=== PATIENT | female | born 1950 | race Caucasian/White ===

== ENCOUNTER 2016-07-24 21:13 | Inpatient (IN) ==
[2016-07-24 22:05] LABS: Basophils # 0.1 K/mcL (0.0-0.2); Basophils % 0.5 %; Eosinophils # 0.1 K/mcL (0.0-0.6); Eosinophils % 0.6 %; Hematocrit 39.6 % (35.3-44.9); Hemoglobin 12.8 g/dL (11.5-15.4); Immature Granulocytes % 0.3 % (0-4); Lymphocytes # 1.5 K/mcL (0.6-4.6); Lymphocytes % 16.3 %; Mean Corpuscular HGB Conc 32.3 g/dL (31.6-35.5); Mean Corpuscular Hemoglobin 31.6 pg (28.0-33.3); Mean Corpuscular Volume 97.8 fL (83.0-100.0); Mean Platelet Volume 11.7 fL (9.4-12.4); Monocytes # 1.1 K/mcL (0.0-1.3); Monocytes % 11.2 %; Neutrophils # 6.7 K/mcL (1.6-8.9); Platelet Count 314 K/mcL (140-400); Red Blood Count 4.05 M/mcL (3.82-4.97); Red Cell Distribution Width 14.6 % (11.5-14.5); Segmented Neutrophils % 71.1 %
--- NOTE | 2016-07-24 22:05 | Emergency Department Note ---
Disposition Clinical Impression: Weakness, Hypokalemia Hypothyroidism Qualifiers: Hypothyroidism type: unspecified Qualified Code(s): E03.9 - Hypothyroidism, unspecified Disposition: Admitted As Inpatient Condition: Good Weakness HPI - General Chief complaint: ED Weakness Stated complaint: General Weakness Time Seen by Provider: 07/24/16 21:23 Source: patient, EMS Limitations: no limitations Nursing Notes Reviewed: Yes Vital Signs Reviewed: Yes - History of Present Illness HPI Narrative: Patient is here for evaluation of generalized weakness. Patient states that she has had worsening symptoms over the last 3 weeks that it been acutely worse over the last several days. The patient has a hip problem that is being evaluated by a surgeon in [place]. Patient is supposed to be evaluated for surgery next week. Patient has a history of gastric bypass surgery as well as hypothyroidism and has not been taking her medications or supplements as prescribed. Patient has had increasing swelling and size of her legs. Patient left hip is the one being evaluated for surgery however it is pain in her right leg that has been more severe recently. Patient has not had any falls or recent trauma. Patient lives at home alone and has to the point that she is not able to walk and take care of any of her activities of daily living. Pain Scale: 7 - Related Data Home Medications Medication Instructions Recorded Confirmed Albuterol Sulfate [Albuterol 2 puff IH Q4HR PRN 10/12/15 10/12/15 Inhaler] Cyanocobalamin (B-12) [Vitamin B12] 1,000 mcg PO QMONTH 10/12/15 10/12/15 Dronedarone [Multaq] 400 mg PO BIDWM 10/12/15 10/12/15 Ferrous Sulfate 325 mg PO DAILY 10/12/15 10/12/15 Levothyroxine [Synthroid] 125 mcg PO 0630 10/12/15 10/12/15 Lidocaine Patch [Lidoderm 5% patch] 1 each TP DAILY 10/12/15 10/12/15 Lisinopril [Zestril] 40 mg PO DAILY 10/12/15 10/12/15 Montelukast [Singulair] 10 mg PO DAILY 10/12/15 10/12/15 Multivitamin [Multi-Day Vitamins] 1 each PO DAILY 10/12/15 10/12/15 Naproxen Sodium [Aleve] 220 mg PO Q12H 10/12/15 10/12/15 Pantoprazole Sodium [Protonix] 40 mg PO BID 10/12/15 10/12/15 Potassium Chloride [K-Tab ER] 20 meq PO DAILY PRN 10/12/15 10/12/15 Torsemide [Demadex] 20 mg PO DAILY PRN 10/12/15 10/12/15 Venlafaxine HCl [Venlafaxine HCl 37.5 mg PO DAILY 10/12/15 10/12/15 ER] traMADol [Ultram] 50 - 100 mg PO DAILY 10/12/15 10/12/15 Allergies Allergy/AdvReac Type Severity Reaction Status Date / Time celecoxib [From Celebrex] Allergy Itching Verified 07/24/16 21:20 aspirin AdvReac "passed Verified 07/24/16 21:20 out" meloxicam [From Mobic] AdvReac high blood Verified 07/24/16 21:20 pressure pregabalin [From Lyrica] AdvReac suicidal Verified 07/24/16 21:20 rofecoxib [From Vioxx] AdvReac high blood Verified 07/24/16 21:20 pressure valdecoxib [From Bextra] AdvReac high blood Verified 07/24/16 21:20 pressure Review of Systems: CONSTITUTIONAL: Increasing weakness and fatigue No weight loss, fever, chills HEENT: Eyes: No visual changes. Ears, Nose, Throat: No hearing loss, difficulty talking or unable to swallow. SKIN: No rash or itching. CARDIOVASCULAR: No chest pain, chest pressure or chest discomfort. No palpitations or edema. RESPIRATORY: No shortness of breath, cough or sputum. GASTROINTESTINAL: No anorexia, nausea, vomiting or diarrhea. No abdominal pain or blood. GENITOURINARY: No burning on urination or hematuria. NEUROLOGICAL: No headache, dizziness, syncope, paralysis, ataxia, numbness or tingling in the extremities. No change in bowel or bladder control. MUSCULOSKELETAL: Back and leg pain HEMATOLOGIC: No bleeding or bruising. LYMPHATICS: No enlarged lymphnodes. PSYCHIATRIC: No change to depression or anxiety. ENDOCRINOLOGIC: Heat and cold intolerance Past Medical History - Past Medical History Medical history: Reports: arthritis, fibromyalgia, GERD, hypertension, other Surgical history: Reports: cholecystectomy, other Psychiatric history: Reports: depression - Social History Smoking Status: Never smoker Smokeless Tobacco Status: No Alcohol use: Reports: none Drug use: Reports: none Physical Exam General appearance: NAD, conversant Eyes: anicteric sclerae, moist conjunctivae; PERRL HENT: Atraumatic; oropharynx clear with moist mucous membranes and no mucosal ulcerations Neck: Normal inspection; Trachea midline; FROM, supple Lungs: CTA, with normal respiratory effort and no intercostal retractions CV: RRR, significant systolic murmur Abdomen: Soft, non-tender; no rebound or gaurding Extremities: Patient has large circumference of lower extremities with no significant pitting edema. Weakness secondary to size Skin: Normal temperature; no rash, ulcers or lesions Psych: Appropriate mood and affect Neuro: alert and oriented to person, place and time - General Limitations: no limitations General appearance: alert Course - Reevaluation(s) Reevaluation #1: Discussed the results with the patient. Patient does not feel safe going home as she is unable to walk at this time secondary to her weakness and deconditioning. Recommend admission. Patient states that she does not want to be admitted to [facility] and wants to be transferred to [facility] for continuity of care. She states her orthopedic surgeon as there and that she is supposed to be scheduled for left hip surgery. She is unsure of the date. Surgeon is Dr. Staton. Reevaluation #2: Discussed the results of the conversation with [place]. Patient understands and is willing to stay at this hospital. - Consultations Consultation #1: Discussed with [place] transfer center. This case was discussed with the hospitalist and they have refused admission at this time secondary to patient not being scheduled for orthopedic procedure secondary to her being high risk for surgery and declining overall status. Consultation #2: Discussed with hospitalist. Patient accepted for admission at [facility]. Vital Signs Temperature 97.9 F 07/24/16 21:20 Pulse Rate 74 07/24/16 21:20 Respiratory Rate 16 07/24/16 21:20 Blood Pressure 177/66 07/24/16 21:20 O2 Sat by Pulse Oximetry 99 07/24/16 21:20 Temperature 97.9 F 07/24/16 21:20 Pulse Rate 76 07/24/16 23:56 Respiratory Rate 18 07/24/16 23:56 Blood Pressure 162/69 07/24/16 23:56 O2 Sat by Pulse Oximetry 100 07/24/16 23:56 Oxygen Delivery Oxygen Delivery Room Air Weakness - Lab Data Result diagrams: 07/24/16 21:33 07/24/16 21:33 Lab Results 07/24/16 07/24/16 07/24/16 Range/Units 21:33 21:33 21:33 WBC 9.5 (4.3-11.1) K/mcL RBC 4.05 (3.82-4.97) M/mcL Hgb 12.8 (11.5-15.4) g/dL Hct 39.6 (35.3-44.9) % MCV 97.8 (83.0-100.0) fL MCH 31.6 (28.0-33.3) pg MCHC 32.3 (31.6-35.5) g/dL RDW 14.6 H (11.5-14.5) % Plt Count 314 (140-400) K/mcL MPV 11.7 (9.4-12.4) fL Immature Gran % 0.3 (0-4) % Seg Neutrophils % 71.1 % Lymphocytes % 16.3 % Monocytes % 11.2 % Eosinophils % 0.6 % Basophils % 0.5 % Neutrophils # 6.7 (1.6-8.9) K/mcL Lymphocytes # 1.5 (0.6-4.6) K/mcL Monocytes # 1.1 (0.0-1.3) K/mcL Eosinophils # 0.1 (0.0-0.6) K/mcL Basophils # 0.1 (0.0-0.2) K/mcL Sodium 142 (136-145) mEq/L Potassium 3.2 L (3.5-4.5) mEq/L Chloride 106 (98-109) mEq/L Carbon Dioxide 27 (19-29) mEq/L BUN 10 (7-20) mg/dL Creatinine 0.70 (0.57-1.11) mg/dL Est GFR ( Amer) > 60 (> 60) Est GFR (Non-Af Amer) > 60 (> 60) BUN/Creatinine Ratio 14 (6-26) Glucose 101 H (70-99) mg/dL Calculated Osmolality 293 (280-300) Calcium 9.4 (8.6-10.8) mg/dL Ionized Calcium 1.16 (1.15-1.35) mmol/L Phosphorus 2.9 (2.3-4.7) mg/dL Magnesium 1.7 (1.6-2.6) mg/dL Total Bilirubin 0.8 (0.2-1.2) mg/dL AST 48 H (5-34) Units/L ALT 22 (0-55) Units/L Alkaline Phosphatase 193 H (38-126) Units/L Troponin I (0-0.03) ng/mL Serum Total Protein 6.7 (6.0-8.3) g/dL Albumin 3.3 L (3.5-5.0) g/dL Globulin 3.4 (2.4-3.5) g/dL Albumin/Globulin Ratio 1.0 L (1.1-2.2) TSH 12.069 H (0.350-4.840) mcIU/mL Urine Color (Yellow) Urine Clarity (Clear) Urine pH (5.0-8.0) pH Units Ur Specific Perry (1.010-1.025) Urine Protein (Neg-Trace) mg/dL Urine Glucose (UA) (Normal) mg/dL Urine Ketones (Negative) mg/dL Urine Blood (Negative) Urine Nitrite (Negative) Urine Bilirubin (Negative) Urine Urobilinogen (Normal) mg/dL Ur Leukocyte Esterase (Negative) Urine Microscopic RBC (0-3) per hpf Urine Microscopic WBC (0-3) per hpf Ur Squamous Epith Cells (None-Few) per lpf Urine Bacteria (None-Few) per hpf Hyaline Casts (None-Few) per lpf Ur Culture Indicated? (NO) 07/24/16 07/24/16 Range/Units 21:33 22:25 WBC (4.3-11.1) K/mcL RBC (3.82-4.97) M/mcL Hgb (11.5-15.4) g/dL Hct (35.3-44.9) % MCV (83.0-100.0) fL MCH (28.0-33.3) pg MCHC (31.6-35.5) g/dL RDW (11.5-14.5) % Plt Count (140-400) K/mcL MPV (9.4-12.4) fL Immature Gran % (0-4) % Seg Neutrophils % % Lymphocytes % % Monocytes % % Eosinophils % % Basophils % % Neutrophils # (1.6-8.9) K/mcL Lymphocytes # (0.6-4.6) K/mcL Monocytes # (0.0-1.3) K/mcL Eosinophils # (0.0-0.6) K/mcL Basophils # (0.0-0.2) K/mcL Sodium (136-145) mEq/L Potassium (3.5-4.5) mEq/L Chloride (98-109) mEq/L Carbon Dioxide (19-29) mEq/L BUN (7-20) mg/dL Creatinine (0.57-1.11) mg/dL Est GFR ( Amer) (> 60) Est GFR (Non-Af Amer) (> 60) BUN/Creatinine Ratio (6-26) Glucose (70-99) mg/dL Calculated Osmolality (280-300) Calcium (8.6-10.8) mg/dL Ionized Calcium (1.15-1.35) mmol/L Phosphorus (2.3-4.7) mg/dL Magnesium (1.6-2.6) mg/dL Total Bilirubin (0.2-1.2) mg/dL AST (5-34) Units/L ALT (0-55) Units/L Alkaline Phosphatase (38-126) Units/L Troponin I 0.03 (0-0.03) ng/mL Serum Total Protein (6.0-8.3) g/dL Albumin (3.5-5.0) g/dL Globulin (2.4-3.5) g/dL Albumin/Globulin Ratio (1.1-2.2) TSH (0.350-4.840) mcIU/mL Urine Color Dark Yellow (Yellow) Urine Clarity Clear (Clear) Urine pH 6.0 (5.0-8.0) pH Units Ur Specific Perry > 1.030 H (1.010-1.025) Urine Protein 30 H (Neg-Trace) mg/dL Urine Glucose (UA) Normal (Normal) mg/dL Urine Ketones 15 H (Negative) mg/dL Urine Blood Small H (Negative) Urine Nitrite Negative (Negative) Urine Bilirubin Small H (Negative) Urine Urobilinogen Normal (Normal) mg/dL Ur Leukocyte Esterase Negative (Negative) Urine Microscopic RBC 50-100 H (0-3) per hpf Urine Microscopic WBC 0-3 (0-3) per hpf Ur Squamous Epith Cells Many H (None-Few) per lpf Urine Bacteria None Seen (None-Few) per hpf Hyaline Casts Moderate H (None-Few) per lpf Ur Culture Indicated? NO (NO) Attestation Statement - Attestation Attestation: I, Lewis English MD, personally evaluated this patient and discussed their management with the resident physician. I reviewed the resident's note and agree with the documented findings, medical decision making, and plan of care. 66-year-old female presents to the emergency department with a complaint of increasing generalized weakness over the past few days to the point that today she has been unable to ambulate or even get to the bathroom. She lives alone. No specific fall or injury. No cough or chest pain or shortness of breath. No fever. No vomiting or diarrhea. No abdominal pain. She does state that she has not felt well and has not been taking her medications as prescribed. On examination patient is a morbidly obese elderly female in no acute distress. She is alert and oriented 3. There is no cyanosis or diaphoresis. Breath sounds are clear and equal bilaterally. Heart regular rate and rhythm. Abdomen is soft with normal bowel sounds. Some mild cellulitis of the distal lower extremities bilaterally which she states has been present for several weeks. No gross focal neurological deficits. Labs reviewed. Chest x-ray negative. EKG shows a normal sinus rhythm with a heart rate of [address] and T-wave changes. Patient requested to be transferred to [facility] because she has been seeing a specialist there regarding some hip problems. [facility] was consulted and given patient information and declined to accept patient for transfer to their facility. The hospitalist here, Dr. Resendez, was then consulted and accepted admission of the patient to the hospital.
[2016-07-24 22:10] LABS: Ionized Calcium 1.16 mmol/L (1.15-1.35)
[2016-07-24 22:18] LABS: Magnesium 1.7 mg/dL (1.6-2.6); Phosphorous 2.9 mg/dL (2.3-4.7)
[2016-07-24 22:19] LABS: Alanine Aminotransferase 22 Units/L (0-55); Albumin 3.3 g/dL (3.5-5.0); Alkaline Phosphatase 193 Units/L (38-126); Aspartate Amino Transferase 48 Units/L (5-34); BUN/Creatinine Ratio 14 (6-26); Bilirubin,Total 0.8 mg/dL (0.2-1.2); Blood Urea Nitrogen 10 mg/dL (7-20); Calcium 9.4 mg/dL (8.6-10.8); Carbon Dioxide 27 mEq/L (19-29); Chloride 106 mEq/L (98-109); Globulin 3.4 g/dL (2.4-3.5); Glucose 101 mg/dL (70-99); Osmolality,Calculated 293 (280-300); Potassium 3.2 mEq/L (3.5-4.5); Sodium 142 mEq/L (136-145); Total Protein 6.7 g/dL (6.0-8.3); eGFR For African Americans > 60 (> 60); eGFR For Non-African Americans > 60 (> 60)
[2016-07-24 22:40] LABS: Thyroid Stimulating Hormone 12.069 mcIU/mL (0.350-4.840)
[2016-07-24 22:45] LABS: Bilirubin,Urine Small (Negative); Blood,Urine Small (Negative); Clarity,Urine Clear (Clear); Color,Urine Dark Yellow (Yellow); Glucose,Urine (UA) Normal (Normal); Ketones,Urine 15 mg/dL (Negative); Leukocyte Esterase,Urine Negative (Negative); Nitrite,Urine Negative (Negative); Protein,Urine 30 mg/dL (Neg-Trace); Specific Gravity,Urine > 1.030 (1.010-1.025); Urobilinogen,Urine Normal (Normal)
[2016-07-24 22:47] LABS: Bacteria,Urine None Seen per hpf (None-Few); Hyaline Casts,Urine Moderate per lpf (None-Few); RBC,Urine 50-100 per hpf (0-3); Squamous Epithelial Cell,Urine Many per lpf (None-Few); WBC,Urine 0-3 per hpf (0-3)
[2016-07-24] MEDS ORDERED: Potassium Citrate 10 MEQ TABLET.ER PO ONE (23:12)
[2016-07-25] MEDS ORDERED: Naloxone 0.4 MG/ML INJ IVP PRN (05:29)
[2016-07-25] MEDS ORDERED: Acetaminophen 325 MG TABLET PO PRN (05:29)
[2016-07-25] MEDS ORDERED: Ondansetron 4 MG/2 ML VIAL IVP PRN (05:29)
--- NOTE | 2016-07-25 05:42 | Internal Med History&Physical ---
Date of Encounter: 07/25/16 Time of Encounter: 05:40 Assessment and Plan (1) Bilateral lower leg cellulitis Current visit: Yes Status: Acute Patient reports skin redness in both lower extremity and dyspnea consistent with cellulitis. Plan: we will treat her with IV vancomycin due to high prevalence of community acquired MRSA. I will order a blood culture. Follow-up clinically and de- escalate to oral antibiotics in 1-2 days. (2) Type 2 diabetes mellitus Current visit: Yes Status: Acute We will start Levemir and Humalog insulin preprandial and sliding scale. Check hemoglobin A1c. Qualifiers: Diabetes mellitus complication status: without complication Diabetes mellitus nursing home insulin use: with long term acute care registered nurse use Qualified Code(s): E11.9 - Type 2 diabetes mellitus without complications; Z79.4 - rodent exterminator (current) use of insulin (3) Physical deconditioning Current visit: Yes Status: Acute PT OT evaluation (4) Morbid obesity with BMI of 45.0-49.9, adult Current visit: Yes Status: Acute Outpatient weight loss regimen. (5) Essential hypertension Current visit: Yes Status: Acute (6) Hypothyroidism Current visit: Yes Status: Acute We will treat her with IV levothyroxin. Switch back to oral levofloxacin prior to discharge. We will obtain free T3 and free T4 levels. Qualifiers: Hypothyroidism type: acquired Qualified Code(s): E03.9 - Hypothyroidism, unspecified Internal Medicine - H&P: HPI Chief complaint: Weakness Admitted From: Emergency Dept Plans for Post Hospital Care: Home History of present illness: Ms. Granado is a 66 year old female with past medical history significant for morbid obesity, type 2 diabetes and hypothyroidism who presented to the hospital for generalized weakness. She states that she is having progressive generalized weakness for the last 2 weeks, for the last 2 days she was not able to ambulate even with a walker which is her norm. She denies any worsening pain in her knees hips and legs. Denies back pain. Denies fevers chills cough chest pain, nausea, vomiting and diarrhea. Workup done in the emergency department was pertinent for elevated TSH. A 10 point review of systems was negative except per the history of present illness. Past medical history as mentioned above Family history reviewed and found to be noncontributory. Past Med Surg Social Fam HX - Past Medical History Medical history: arthritis, atrial fibrillation, fibromyalgia, GERD, hypertension, other Psychiatric history: depression - Past Surgical History Surgical History: , cholecystectomy, other - Social History Smoking Status: Never smoker Smokeless Tobacco Status: No Alcohol use: none Drug use: none - Family History Mother Living Status: Hx Family Cardiac Disorders: Yes Internal Medicine - H&P: Meds Albuterol Sulfate [Albuterol Inhaler] 2 puff IH Q4HR PRN 10/12/15 [History] Cyanocobalamin (B-12) [Vitamin B12] 1,000 mcg PO QMONTH 10/12/15 [History] Dronedarone [Multaq] 400 mg PO BIDWM 10/12/15 [History] Ferrous Sulfate 325 mg PO DAILY 10/12/15 [History] Levothyroxine [Synthroid] 125 mcg PO 0630 10/12/15 [History] Lidocaine Patch [Lidoderm 5% patch] 1 each TP DAILY 10/12/15 [History] Lisinopril [Zestril] 40 mg PO DAILY 10/12/15 [History] Montelukast [Singulair] 10 mg PO DAILY 10/12/15 [History] Multivitamin [Multi-Day Vitamins] 1 each PO DAILY 10/12/15 [History] Naproxen Sodium [Aleve] 220 mg PO Q12H 10/12/15 [History] Pantoprazole Sodium [Protonix] 40 mg PO BID 10/12/15 [History] Potassium Chloride [K-Tab ER] 20 meq PO DAILY PRN 10/12/15 [History] Torsemide [Demadex] 20 mg PO DAILY PRN 10/12/15 [History] Venlafaxine HCl [Venlafaxine HCl ER] 37.5 mg PO DAILY 10/12/15 [History] traMADol [Ultram] 50 - 100 mg PO DAILY 10/12/15 [History] Allergies celecoxib [From Celebrex] Allergy (Verified 07/24/16 21:20) Itching aspirin Adverse Reaction (Verified 07/24/16 21:20) "passed out" meloxicam [From Mobic] Adverse Reaction (Verified 07/24/16 21:20) high blood pressure pregabalin [From Lyrica] Adverse Reaction (Verified 07/24/16 21:20) suicidal rofecoxib [From Vioxx] Adverse Reaction (Verified 07/24/16 21:20) high blood pressure valdecoxib [From Bextra] Adverse Reaction (Verified 07/24/16 21:20) high blood pressure All Systems PM: A 10-system review of systems was performed and is negative for pertinent findings except as documented above in the HPI. - Constitutional Vitals: Temp Pulse Resp BP Pulse Ox 98.2 F 81 18 162/82 100 07/25/16 02:18 07/25/16 02:18 07/25/16 02:18 07/25/16 02:18 07/25/16 02:18 General appearance: Present: A&O X 3 - Eye Eye exam: Present: PERRL, conjuntiva pink, sclera anicteric Pupils: Present: PERRL - Respiratory Respiratory exam: Present: CTAB. Absent: accessory muscle use, rales, rhonchi, wheezes - Cardiovascular Cardiovascular exam: Present: RRR, +S1, +S2. Absent: diastolic murmur, gallop, rubs, systolic murmur - GI/Abdominal GI/Abdominal exam: Present: normal bowel sounds, soft, no peritoneal signs. Absent: distended, tenderness - Extremities Exam Extremities exam: Present: pedal edema, warm, radial pulses palpable and symetrical. Absent: calf tenderness, cyanotic - Neurological Exam Neurological exam: Present: CN II-XII intact, oriented X3, no focal deficits. Absent: pronater drift, facial droop, speech deficit - Skin Skin exam: Present: erythema (Bilateral lower extremity skin redness and warmth to palpation, subcutaneous edema) Internal Med - H&P Results - Labs CBC & Chem 7: 07/24/16 21:33 07/24/16 21:33
[2016-07-25 05:46] LABS: BUN/Creatinine Ratio 14 (6-26); Blood Urea Nitrogen 8 mg/dL (7-20); Calcium 8.2 mg/dL (8.6-10.8); Carbon Dioxide 26 mEq/L (19-29); Chloride 109 mEq/L (98-109); Glucose 87 mg/dL (70-99); Magnesium 1.6 mg/dL (1.6-2.6); Osmolality,Calculated 294 (280-300); Potassium 3.2 mEq/L (3.5-4.5); Sodium 143 mEq/L (136-145); eGFR For African Americans > 60 (> 60); eGFR For Non-African Americans > 60 (> 60)
[2016-07-25] MEDS ORDERED: D5% in Water 1,000 ML IVC PRN (05:48)
[2016-07-25] MEDS ORDERED: *HR* Dextrose 50 % in Water (Syg) 50 ML SYRINGE IVP PRN (05:48)
[2016-07-25] MEDS ORDERED: Dextrose Gel 15 GM PO PRN ×2 (05:48)
[2016-07-25 06:09] LABS: Triiodothyronine (T3) Free 1.61 pg/mL (1.71-3.71); Triiodothyronine (T3) Total 0.48 ng/mL (0.58-1.59)
[2016-07-25] MEDS ORDERED: (Lactase [Dairy Relief] 3,000 UNIT) PO PRN (06:48)
[2016-07-25] MEDS ORDERED: traMADol 50 MG TABLET PO PRN (06:48)
[2016-07-25] MEDS: Levothyroxine Sodium 100 MCG VIAL IVP SCH (06:51)
[2016-07-25] MEDS ORDERED: Vancomycin 2,000 MG in D5% in Water 250 ML IVPB SCH (07:00)
[2016-07-25] MEDS ORDERED: Vancomycin 2,000 MG in D5% in Water 500 ML IVPB SCH (07:00)
[2016-07-25] MEDS ORDERED: NON-FORMULARY MEDICATION 1 EACH EACH (Lisinopril [Zestril] 40 MG) PO SCH (09:00)
[2016-07-25] MEDS: Insulin LISPRO 300 UNITS/3 ML VIAL SQ SCH ×6 (09:25→15:49)
[2016-07-25] MEDS: Insulin DETEMIR 100 UNIT/ML X5UNITS SQ SCH ×2 (09:44→20:08)
[2016-07-25] MEDS: Venlafaxine XR (24 HR) 37.5 MG CAP.ER.24H PO SCH (09:44)
[2016-07-25] MEDS: Lisinopril 20 MG TABLET PO SCH (09:45)
--- NOTE | 2016-07-25 14:41 | Internal Med Progress Note ---
Date of Encounter: 07/25/16 Time of Encounter: 10:00 - Assessment and plan (1) Bilateral lower leg cellulitis Current Visit: Yes Status: Acute Assessment and plan: She reports redness in both lower extremities. There is minimal redness to the anterior bilateral lower extremities, they are warm to touch. There is no drainage or streaking. Has no leukocytosis or fever. Continue IV vancomycin transition to by mouth antibiotics tomorrow. (2) Weakness Current Visit: Yes Status: Acute Assessment and plan: Patient states that now she is unable to walk. She says she has not been able to walk for a couple of days has become progressively weak. She was doing physical therapy at home and when that stopped she began becoming weak. Patient is morbidly O penis and deconditioned, she lives at home with her parents and relies on them for most of her care. Physical therapy and occupational therapy consultations are pending. organic lab worker is working on home health and placing patient with her daughter until she is ambulatory again. (3) Hypokalemia Current Visit: Yes Status: Acute Assessment and plan: Continue by mouth potassium supplements (4) Hypothyroidism Current Visit: Yes Status: Acute Assessment and plan: TSH was elevated to 12.069. Free T3 was 1.61 and free T4 was 0.73. Total T3 0.48 low. Patient was given IV levothyroxine in the emergency department and will continue her home dose inpatient. She will need to follow-up with primary care for dosage adjustments. Qualifiers: Hypothyroidism type: acquired Qualified Code(s): E03.9 - Hypothyroidism, unspecified (5) Type 2 diabetes mellitus Current Visit: Yes Status: Acute Assessment and plan: A1c 5.0%. Continue to do achs accuchecks Hold insulin unless needed. Reassess need for medications at discharge. Qualifiers: Diabetes mellitus complication status: without complication Diabetes mellitus alf insulin use: with alf use Qualified Code(s): E11.9 - Type 2 diabetes mellitus without complications; Z79.4 - detention (current) use of insulin (6) Physical deconditioning Current Visit: Yes Status: Acute Assessment and plan: Plan as above. (7) Morbid obesity with BMI of 45.0-49.9, adult Current Visit: Yes Status: Acute Assessment and plan: Chronic. Lifestyle changes. (8) Essential hypertension Current Visit: Yes Status: Chronic Assessment and plan: Well controlled. Continue home medications and vitals as ordered. (9) DVT prophylaxis Current Visit: Yes Status: Acute Assessment and plan: SCD and up to chair BID - Time Spent With Patient less than 15 minutes - Subjective Interval history: Patient was seen and assessed about 10 AM this morning. She is alert and awake oriented 3. She is pleasant. Patient was admitted for bilateral leg cellulitis. Patient states that she is no longer able to walk. She had been doing physical therapy at home, and when she finished that she became unable to walk. Patient's legs are extremely large and edematous, mild redness and swelling noted to anterior legs bilaterally. Patient being treated with IV antibiotics Chest reports chronic left hip pain. She is to have a replacement, however surgeon says she is a poor surgical candidate due to weight and comorbidities. She says she has been trying to lose 60 pounds so she can have the surgery, however now she can not get up and walk that has become more difficult. She lives at home with her parents. organic lab worker seeing patient now and she may stay with her daughter and have home health and PT. Patient wanted to discuss CODE STATUS, changing to DNR and living will. Social workers getting her living will paperwork. We discussed the DNR and she will think about it overnight and discuss it with physician tomorrow. - Constitutional Vitals: Temp Pulse Resp BP Pulse Ox 99.4 F 80 17 145/55 94 07/25/16 10:42 07/25/16 10:42 07/25/16 10:42 07/25/16 10:42 07/25/16 10:42 General appearance: Present: cooperative, A&O X 3, morbidly obese, pleasant, answers questions appropriately - Head Head exam: Present: normal inspection - Eye Eye exam: Present: normal appearance, conjuntiva pink - ENT ENT exam: Present: mucous membranes moist, normal exam, normal external ear exam - Neck Neck exam general surgery: Present: normal inspection. Absent: lymphadenopathy , tenderness - Respiratory Respiratory exam: Present: CTAB. Absent: rales, respiratory distress, rhonchi, stridor, wheezes - Cardiovascular Cardiovascular exam: Present: RRR, +S1, +S2. Absent: clicks, diastolic murmur, gallop, systolic murmur - GI/Abdominal GI/Abdominal exam: Present: distended, normal bowel sounds, soft. Absent: hepatomegaly, tenderness - Neurological Exam Neurological exam: Present: alert, oriented X3, no focal deficits. Absent: facial droop, speech deficit - Skin Skin exam: Present: dry, intact, normal color Internal Medicine: Result - Labs CBC & Chem 7: 07/24/16 21:33 07/25/16 05:18 Labs: [facility] 07/25/16 05:18 Sodium 143 Potassium 3.2 L Chloride 109 Carbon Dioxide 26 BUN 8 Creatinine 0.59 Glucose 87 Calcium 8.2 L Consult Discharge Plan - Plan Referrals: Lucy Murphy MD [Primary Care Provider] -
[2016-07-25] MEDS: Vancomycin 2,000 MG in D5% in Water 500 ML IVPB SCH (20:07)
[2016-07-25] MEDS ORDERED: Insulin LISPRO 300 UNITS/3 ML VIAL SQ SCH (21:00)
[2016-07-25] MEDS: traMADol 50 MG TABLET PO PRN (23:25)
[2016-07-26 05:45] LABS: Basophils # 0.1 K/mcL (0.0-0.2); Basophils % 0.7 %; Eosinophils # 0.2 K/mcL (0.0-0.6); Eosinophils % 3.1 %; Hematocrit 32.2 % (35.3-44.9); Immature Granulocytes % 0.4 % (0-4); Lymphocytes # 2.2 K/mcL (0.6-4.6); Lymphocytes % 32.2 %; Mean Corpuscular HGB Conc 32.3 g/dL (31.6-35.5); Mean Corpuscular Hemoglobin 32.6 pg (28.0-33.3); Mean Corpuscular Volume 100.9 fL (83.0-100.0); Mean Platelet Volume 11.5 fL (9.4-12.4); Monocytes # 0.8 K/mcL (0.0-1.3); Monocytes % 11.8 %; Neutrophils # 3.6 K/mcL (1.6-8.9); Platelet Count 201 K/mcL (140-400); Red Blood Count 3.19 M/mcL (3.82-4.97); Segmented Neutrophils % 51.8 %
[2016-07-26] MEDS: Levothyroxine Sodium 100 MCG VIAL IVP SCH (05:50)
[2016-07-26] MEDS: Vancomycin 2,000 MG in D5% in Water 500 ML IVPB SCH (05:50)
[2016-07-26 05:55] LABS: Hemoglobin 10.4 g/dL (11.5-15.4)
[2016-07-26 05:58] LABS: BUN/Creatinine Ratio 9 (6-26); Blood Urea Nitrogen 6 mg/dL (7-20); Calcium 7.9 mg/dL (8.6-10.8); Carbon Dioxide 27 mEq/L (19-29); Chloride 111 mEq/L (98-109); Glucose 82 mg/dL (70-99); Osmolality,Calculated 297 (280-300); Potassium 3.4 mEq/L (3.5-4.5); Sodium 145 mEq/L (136-145); eGFR For African Americans > 60 (> 60); eGFR For Non-African Americans > 60 (> 60)
[2016-07-26] MEDS: Insulin DETEMIR 100 UNIT/ML X5UNITS SQ SCH (07:23)
[2016-07-26] MEDS: Insulin LISPRO 300 UNITS/3 ML VIAL SQ SCH ×2 (07:24)
[2016-07-26] MEDS: Venlafaxine XR (24 HR) 37.5 MG CAP.ER.24H PO SCH (07:46)
[2016-07-26] MEDS: Lisinopril 20 MG TABLET PO SCH (07:48)
[2016-07-26] MEDS: traMADol 50 MG TABLET PO PRN ×2 (07:54→18:28)
[2016-07-26] MEDS ORDERED: Aminoglycoside Consult 1 EACH MC ONE (08:37)
--- NOTE | 2016-07-26 10:19 | Internal Med Progress Note ---
Date of Encounter: 07/26/16 Time of Encounter: 09:15 - Assessment and plan (1) Weakness Current Visit: Yes Status: Acute Assessment and plan: Acute on chronic. Patient has several reasons that she feels has contributed to her gradual descent towards not being able to ambulate, most of them seem to stem from allegedly uncontrolled pain and noncompliance with dietary changes. She states she has seen several meat team lead and other providers out of tried to help her lose weight she states that she only eats cheese, crackers, and peanut butter and states that anything other than that will make her have diarrhea, vomit, or upset her stomach. She is not willing to try other new foods and is not willing to try healthy foods. She is simply noncompliant. BMI is 50. She lives alone and uses a walker and a cane. She has not had any recent falls since February. She states she has been sleeping while sitting upright for the past 4 weeks because she states her left leg pain is too severe for her to lay down. At this point, she states she cannot lift her legs up off the bed, suspect acute on chronic deconditioning secondary to sedentary behavior. OT and PT consultations are pending. adult services librarian on board as well. Awaiting recommendations. No signs of acute processes. Urinalysis negative. Blood cultures negative. No indication of acute cellulitis or acute infection. Chest x-ray negative. ITS Impressions Chest X-Ray 07/24/16 21:33 IMPRESSION: No acute process. Mild cardiomegaly. D/ / Kesha James MD / Kesha James MD Interpreting Provider: Kesha James MD (2) Physical deconditioning Current Visit: Yes Status: Acute Assessment and plan: Awaiting OT and PT consultations. Patient stating that she lives alone and uses a walker and a cane. She denies any recent falls since February of this year. She states that she has been sleeping sitting upright for the last 4 weeks secondary to left leg pain. adult services librarian on board as well. Patient stating she would be amenable to ECF placement if it is recommended and if her insurance will cover it. (3) Noncompliance of patient with dietary regimen Current Visit: Yes Status: Chronic (4) Hypokalemia Current Visit: Yes Status: Acute Assessment and plan: Improving and nearly resolved. Continue by mouth potassium supplements (5) Hypothyroidism Current Visit: Yes Status: Chronic Assessment and plan: TSH was elevated to 12.069. Free and total T3 both low; Free T4 normal. She was started on IV Levothyroxine in the ED- will transition to PO upon discharge. Home dosing of 125 mcg per day will need increased upon discharge. She is endorsing compliance with her medication. Qualifiers: Hypothyroidism type: acquired Qualified Code(s): E03.9 - Hypothyroidism, unspecified (6) Bilateral lower leg cellulitis Current Visit: Yes Status: Inactive Assessment and plan: On examination, I do not see any evidence of cellulitis. No erythema noted to either extremity. She is morbidly obese so her body habitus makes physical examination difficult however I do not see any areas of erythema and I do not feel any areas of warmth. No leukocytosis, patient is afebrile. There is no indication of an active infection at this time. We will discontinue antibiotics and monitor. (7) Type 2 diabetes mellitus Current Visit: Yes Status: Inactive Assessment and plan: It does not appear as if this patient has diabetes. She is on no diabetes medications at home and her A1c is 5.0%. No indication to initiate medications. Follow up outpatient. Qualifiers: Diabetes mellitus complication status: without complication Diabetes mellitus senior living insulin use: without senior living use Qualified Code(s): E11.9 - Type 2 diabetes mellitus without complications (8) Essential hypertension Current Visit: Yes Status: Chronic Assessment and plan: Controlled. Continue home medications and will trend and adjust medications as indicated (9) DVT prophylaxis Current Visit: Yes Status: Acute Assessment and plan: IPCs band up to chair BID (10) Morbid obesity with BMI of 50.0-59.9, adult Current Visit: Yes Status: Chronic - Subjective Interval history: Patient seen and examined. On examination, patient is sitting upright in bed watching television. Patient stating she still feels weak. She states that for the last 4 weeks, that she has had to sleep sitting up secondary to left leg pain. She states the gabapentin is helping. She states she is not eating very much because she is not like our food. - Constitutional Vitals: Temp Pulse Resp BP Pulse Ox 98.0 F 62 12 132/68 97 07/26/16 07:15 07/26/16 07:15 07/26/16 07:15 07/26/16 07:15 07/26/16 07:15 General appearance: Present: cooperative, A&O X 3, morbidly obese, pleasant, no acute distress, answers questions appropriately - Head Head exam: Present: atraumatic, normocephalic - Eye Eye exam: Present: PERRL, conjuntiva pink, sclera anicteric Pupils: Present: PERRL - Neck Neck exam general surgery: Present: supple, trachea midline. Absent: lymphadenopathy - Respiratory Respiratory exam: Present: decreased breath sounds (2/2 body habitus). Absent: accessory muscle use, rales, respiratory distress, rhonchi, wheezes - Cardiovascular Cardiovascular exam: Present: distant heart sounds (2/2 body habitus), RRR, +S1 , +S2. Absent: diastolic murmur, gallop, rubs, systolic murmur - GI/Abdominal GI/Abdominal exam: Present: normal bowel sounds, soft, no peritoneal signs. Absent: distended, tenderness - Extremities Exam Extremities exam: Present: pedal edema (trace, nonpitting), warm, radial pulses palpable and symetrical. Absent: calf tenderness, cyanotic - Neurological Exam Neurological exam: Present: alert, CN II-XII intact, oriented X3, no focal deficits, strengths equal and symetr throughout. Absent: pronater drift, facial droop, speech deficit - Expanded Neurological Exam Neurological exam expanded: Present: protecting the airway Patient oriented to: Present: person, place, time Speech: Present: fluid speech Neuro motor strength exam: LUE: 5, RUE: 5, LLE: 2/1, RLE: 2/1 Coma Scale Eye Opening: Spontaneous Coma Scale Motor Response: Obeys Commands Coma Scale Verbal Response: Oriented Coma Scale Total: 15 - Skin Skin exam: Present: dry, intact, normal color, warm Internal Medicine: Result - Labs CBC & Chem 7: 07/26/16 04:12 07/26/16 04:12 Labs: Short CBC 07/26/16 Range/Units 04:12 WBC 6.9 (4.3-11.1) K/mcL Hgb 10.4 L D (11.5-15.4) g/dL Hct 32.2 L (35.3-44.9) % Plt Count 201 (140-400) K/mcL Neutrophils # 3.6 (1.6-8.9) K/mcL BMP 07/26/16 04:12 Sodium 145 Potassium 3.4 L Chloride 111 H Carbon Dioxide 27 BUN 6 L Creatinine 0.66 Glucose 82 Calcium 7.9 L Consult Discharge Plan - Plan Referrals: Lucy Murphy MD [Primary Care Provider] -
--- NOTE | 2016-07-26 17:59 | Electrocardiograph Report ---
[place] [id number] Test Date: 2016-07-24 Pat Name: Tess Granado Department: 104 Room: 3B44 Gender: F Rn Medicare: [facility] : 1950 Requested By: Jerel Liang Order Number: [id number] Reading MD: Aida Joseph Measurements Intervals [place] Rate: 72 P: 50 DC: 131 QRS: -1 QRSD: 110 T: -36 QT: 378 QTc: 402 Interpretive Statements SINUS RHYTHM MODERATE VOLTAGE CRITERIA FOR LVH, CONSIDER NORMAL VARIANT NONSPECIFIC ST \T\ T-WAVE ABNORMALITY BASELINE ARTIFACT Electronically Signed On 07-26-2016 17:57:35 EDT by Aida Joseph
[2016-07-27 05:46] LABS: Basophils # 0.1 K/mcL (0.0-0.2); Eosinophils # 0.3 K/mcL (0.0-0.6); Eosinophils % 4.9 %; Hematocrit 35.4 % (35.3-44.9); Hemoglobin 11.1 g/dL (11.5-15.4); Immature Granulocytes % 0.5 % (0-4); Lymphocytes % 32.2 %; Mean Corpuscular HGB Conc 31.4 g/dL (31.6-35.5); Mean Corpuscular Hemoglobin 31.4 pg (28.0-33.3); Mean Corpuscular Volume 100.3 fL (83.0-100.0); Mean Platelet Volume 12.1 fL (9.4-12.4); Monocytes # 0.6 K/mcL (0.0-1.3); Monocytes % 10.4 %; Neutrophils # 3.1 K/mcL (1.6-8.9); Platelet Count 180 K/mcL (140-400); Red Blood Count 3.53 M/mcL (3.82-4.97); Red Cell Distribution Width 14.8 % (11.5-14.5)
[2016-07-27 05:59] LABS: BUN/Creatinine Ratio 8 (6-26); Carbon Dioxide 27 mEq/L (19-29); Chloride 109 mEq/L (98-109); Glucose 89 mg/dL (70-99); Magnesium 1.4 mg/dL (1.6-2.6); Osmolality,Calculated 291 (280-300); Potassium 3.6 mEq/L (3.5-4.5); Sodium 142 mEq/L (136-145); eGFR For African Americans > 60 (> 60); eGFR For Non-African Americans > 60 (> 60)
[2016-07-27 06:03] LABS: Blood Urea Nitrogen 5 mg/dL (7-20)
[2016-07-27] MEDS: Venlafaxine XR (24 HR) 37.5 MG CAP.ER.24H PO SCH (07:45)
[2016-07-27] MEDS: Lisinopril 20 MG TABLET PO SCH (07:45)
[2016-07-27] MEDS: traMADol 50 MG TABLET PO PRN ×2 (11:07→20:06)
--- NOTE | 2016-07-27 16:36 | Internal Med Progress Note ---
Date of Encounter: 07/27/16 Time of Encounter: 14:00 - Assessment and plan (1) Weakness Current Visit: Yes Status: Acute Assessment and plan: Acute on chronic. Patient has several reasons that she feels has contributed to her gradual descent towards not being able to ambulate, most of them seem to stem from allegedly uncontrolled pain and noncompliance with dietary changes. She states she has seen several network technician and other providers out of tried to help her lose weight she states that she only eats cheese, crackers, and peanut butter and states that anything other than that will make her have diarrhea, vomit, or upset her stomach. She is not willing to try other new foods and is not willing to try healthy foods. She is simply noncompliant. BMI is 50. She lives alone and uses a walker and a cane. She has not had any recent falls since February. She states she has been sleeping while sitting upright for the past 4 weeks because she states her left leg pain is too severe for her to lay down. We will obtain an echocardiogram- no echo on file. At this point, she states she cannot lift her legs up off the bed, suspect acute on chronic deconditioning secondary to sedentary behavior. OT and PT consultations have both recommended inpatient rehabilitation. We are awaiting placement. emergency medical services coordinator on board. No signs of acute processes. Urinalysis negative. Blood cultures negative. Chest x-ray negative. Possible mild, early cellulitis- will add PO antibiotics. ITS Impressions Chest X-Ray 07/24/16 21:33 IMPRESSION: No acute process. Mild cardiomegaly. D/ / Kesha James MD / Kesha James MD Interpreting Provider: Kesha James MD (2) Physical deconditioning Current Visit: Yes Status: Acute Assessment and plan: OT and PT have both recommended inpatient rehabilitation. Patient stating that she lives alone and uses a walker and a cane. She denies any recent falls since February of this year. She states that she has been sleeping sitting upright for the last 4 weeks secondary to left leg pain-echo pending. emergency medical services coordinator on board as well. Awaiting placement. Patient is not safe to be discharged in the meantime. (3) Noncompliance of patient with dietary regimen Current Visit: Yes Status: Chronic Assessment and plan: Nutrition services brought on board. Will add high-protein ensure 3 times a day as it is lactose-free. Of note, patient is status post Damon-en-Y gastric bypass in 2003, will check for nutritional deficiencies (4) Hypokalemia Current Visit: Yes Status: Resolved (5) Hypothyroidism Current Visit: Yes Status: Chronic Assessment and plan: TSH was elevated to 12.069. Free and total T3 both low; Free T4 normal. She was started on IV Levothyroxine in the ED- will transition to PO upon discharge. Home dosing of 125 mcg per day will need increased upon discharge. She is endorsing compliance with her medication. Qualifiers: Hypothyroidism type: acquired Qualified Code(s): E03.9 - Hypothyroidism, unspecified (6) Bilateral lower leg cellulitis Current Visit: Yes Status: Acute Assessment and plan: On examination, very mild erythema noted to bilateral lower extremities with very mild warmth. Possible acute cellulitis although she has no other indications of an active infection. Will add by mouth antibiotics. No antibiotic allergies listed. (7) Type 2 diabetes mellitus Current Visit: Yes Status: Inactive Assessment and plan: It does not appear as if this patient has diabetes. She is on no diabetes medications at home and her A1c is 5.0%. No indication to initiate medications. Follow up outpatient. Qualifiers: Diabetes mellitus complication status: without complication Diabetes mellitus local company intermodal truck driver insulin use: without local company intermodal truck driver use Qualified Code(s): E11.9 - Type 2 diabetes mellitus without complications (8) Essential hypertension Current Visit: Yes Status: Chronic Assessment and plan: Controlled. Continue home medications and will trend and adjust medications as indicated (9) DVT prophylaxis Current Visit: Yes Status: Acute Assessment and plan: Patient endorsing bilateral foot pain, we will order pharmacologic prophylaxis (10) Morbid obesity with BMI of 50.0-59.9, adult Current Visit: Yes Status: Chronic (11) History of Damon-en-Y gastric bypass Current Visit: Yes Status: Acute Assessment and plan: 2003. Patient stating she gets herself monthly injections of B12. - Subjective Interval history: Patient seen and examined. On examination, patient is sitting upright in bed watching television. Patient stating she still feels weak. She also states that she just finished working with physical therapy so she states that she feels sore. Her feet also feel sore. She is also stating that she can no longer eat a diet that we have attempted to provide her with such she has reverted back to her home food that appears to have been brought in by her daughter. - Constitutional Vitals: Temp Pulse Resp BP Pulse Ox 97.9 F 63 16 146/66 96 07/27/16 15:35 07/27/16 15:35 07/27/16 15:35 07/27/16 15:35 07/27/16 15:35 General appearance: Present: cooperative, A&O X 3, morbidly obese, pleasant, no acute distress, answers questions appropriately - Head Head exam: Present: atraumatic, normocephalic - Eye Eye exam: Present: PERRL, conjuntiva pink, sclera anicteric Pupils: Present: PERRL - Neck Neck exam general surgery: Present: supple, trachea midline. Absent: lymphadenopathy - Respiratory Respiratory exam: Present: decreased breath sounds (2/2 body habitus). Absent: accessory muscle use, rales, respiratory distress, rhonchi, wheezes - Cardiovascular Cardiovascular exam: Present: RRR, +S1, +S2. Absent: diastolic murmur, gallop, rubs, systolic murmur - GI/Abdominal GI/Abdominal exam: Present: normal bowel sounds, soft, no peritoneal signs. Absent: distended, tenderness - Extremities Exam Extremities exam: Present: pedal edema, warm, radial pulses palpable and symetrical. Absent: calf tenderness, cyanotic - Expanded Lower Extremities Exam Lower Leg exam: Present: erythema, swelling, tenderness Ankle exam: Present: erythema, swelling, tenderness Foot/Toe exam: Present: erythema, swelling, tenderness Neuro vascular tendon exam: Present: no vascular compromise - Neurological Exam Neurological exam: Present: alert, CN II-XII intact, oriented X3, no focal deficits, strengths equal and symetr throughout. Absent: pronater drift, facial droop, speech deficit - Skin Skin exam: Present: dry, intact, normal color, warm Internal Medicine: Result - Labs CBC & Chem 7: 07/27/16 05:26 07/27/16 05:26 Labs: Short CBC 07/27/16 Range/Units 05:26 WBC 6.2 (4.3-11.1) K/mcL Hgb 11.1 L (11.5-15.4) g/dL Hct 35.4 (35.3-44.9) % Plt Count 180 (140-400) K/mcL Neutrophils # 3.1 (1.6-8.9) K/mcL BMP 07/27/16 05:26 Sodium 142 Potassium 3.6 Chloride 109 Carbon Dioxide 27 BUN 5 L Creatinine 0.61 Glucose 89 Calcium 8.0 L - VTE Documentation of Mechanical Device: Venous foot pump, device Consult Discharge Plan - Plan Referrals: Lucy Murphy MD [Primary Care Provider] -
[2016-07-27 18:34] LABS: % Iron Saturation 16 % (15-50); Iron 39 mcg/dL (50-170); Transferrin 179 mg/dL (180-382)
[2016-07-27 18:45] LABS: Ferritin 137 ng/ml (5-204)
[2016-07-28] MEDS: *HR* Enoxaparin 40 MG/0.4 ML SYRINGE SQ SCH (05:42)
[2016-07-28] MEDS: Venlafaxine XR (24 HR) 37.5 MG CAP.ER.24H PO SCH (08:02)
[2016-07-28] MEDS: Lisinopril 20 MG TABLET PO SCH (08:02)
[2016-07-28] MEDS: traMADol 50 MG TABLET PO PRN ×2 (12:50→20:52)
--- NOTE | 2016-07-28 13:35 | Internal Med Progress Note ---
Date of Encounter: 07/28/16 Time of Encounter: 09:30 - Assessment and plan (1) Weakness Current Visit: Yes Status: Acute Assessment and plan: Acute on chronic. Patient has several reasons that she feels has contributed to her gradual descent towards not being able to ambulate, most of them seem to stem from allegedly uncontrolled pain and noncompliance with dietary changes. She states she has seen several acrobatic rigger and other providers out of tried to help her lose weight she states that she only eats cheese, crackers, and peanut butter and states that anything other than that will make her have diarrhea, vomit, or upset her stomach. She had a Damon en y in 2003. She is not willing to try other new foods and is not willing to try healthy foods. She is simply noncompliant. BMI is 50. She lives alone and uses a walker and a cane. She has not had any recent falls since February. She states she has been sleeping while sitting upright for the past 4 weeks because she states her left leg pain is too severe for her to lay down. Echocardiogram pending. At this point, she states she cannot lift her legs up off the bed, suspect acute on chronic deconditioning secondary to sedentary behavior. OT and PT consultations have both recommended inpatient rehabilitation. We are awaiting placement- will likely be cleared for [facility] tomorrow. student services dean on board. No signs of acute processes. Urinalysis negative. Blood cultures negative. Chest x-ray negative. Possible mild, early cellulitis- continue PO antibiotics. ITS Impressions Chest X-Ray 07/24/16 21:33 IMPRESSION: No acute process. Mild cardiomegaly. D/ / Kesha James MD / Kesha James MD Interpreting Provider: Kesha James MD (2) Physical deconditioning Current Visit: Yes Status: Acute Assessment and plan: OT and PT have both recommended inpatient rehabilitation. Patient stating that she lives alone and uses a walker and a cane. She denies any recent falls since February of this year. She states that she has been sleeping sitting upright for the last 4 weeks secondary to left leg pain-echo pending. student services dean on board as well. Awaiting placement. Patient is not safe to be discharged in the meantime. (3) Noncompliance of patient with dietary regimen Current Visit: Yes Status: Chronic Assessment and plan: Nutrition services brought on board. High-protein ensure added 3 times a day as it is lactose-free. Of note, patient is status post Damon-en-Y gastric bypass in 2003. She states she gives herself monthly B12 injections. She also states that she is on iron supplements but states she has diarrhea with iron supplementation. Iron stores are low, B12 and folate are normal. TSH elevated and is being addressed, her Synthroid dosage will be increased upon discharge. (4) Hypokalemia Current Visit: Yes Status: Resolved (5) Hypothyroidism Current Visit: Yes Status: Chronic Assessment and plan: TSH was elevated to 12.069. Free and total T3 both low; Free T4 normal. She was started on IV Levothyroxine in the ED- will transition to PO upon discharge. Home dosing of 125 mcg per day will need increased upon discharge. She is endorsing compliance with her medication. Qualifiers: Hypothyroidism type: acquired Qualified Code(s): E03.9 - Hypothyroidism, unspecified (6) Bilateral lower leg cellulitis Current Visit: Yes Status: Acute Assessment and plan: On examination, very mild erythema noted yesterday to bilateral lower extremities, today only to the left with very mild warmth. Possible acute cellulitis although she has no other indications of an active infection. Will continue by mouth antibiotics. No antibiotic allergies listed. (7) Type 2 diabetes mellitus Current Visit: Yes Status: Inactive Assessment and plan: It does not appear as if this patient has diabetes. She is on no diabetes medications at home and her A1c is 5.0%. No indication to initiate medications. Follow up outpatient. Qualifiers: Diabetes mellitus complication status: without complication Diabetes mellitus longterm insulin use: without longterm use Qualified Code(s): E11.9 - Type 2 diabetes mellitus without complications (8) Essential hypertension Current Visit: Yes Status: Chronic Assessment and plan: Controlled. Continue home medications and will trend and adjust medications as indicated (9) DVT prophylaxis Current Visit: Yes Status: Acute Assessment and plan: Patient endorsing bilateral foot pain, pharmacologic prophylaxis ordered yesterday. Okay to [facility] (10) Morbid obesity with BMI of 50.0-59.9, adult Current Visit: Yes Status: Chronic (11) History of Damon-en-Y gastric bypass Current Visit: Yes Status: Acute Assessment and plan: 2003. Patient stating she gets herself monthly injections of B12. - Subjective Interval history: Patient seen and examined. On examination, patient is sitting upright in bed watching television. Patient stating she is feeling better and states that she slept well last night. She states that the redness in her legs appears to be improving. She states she refused her lunch tray and has only eaten nuts today. - Constitutional Vitals: Temp Pulse Resp BP Pulse Ox 97.8 F 68 17 147/63 97 07/28/16 10:45 07/28/16 10:45 07/28/16 10:45 07/28/16 10:45 07/28/16 10:45 General appearance: Present: cooperative, A&O X 3, morbidly obese, pleasant, no acute distress, answers questions appropriately - Head Head exam: Present: atraumatic, normocephalic - Eye Eye exam: Present: PERRL, conjuntiva pink, sclera anicteric Pupils: Present: PERRL - Neck Neck exam general surgery: Present: supple, trachea midline. Absent: lymphadenopathy - Respiratory Respiratory exam: Present: decreased breath sounds (2/2 body habitus). Absent: accessory muscle use, rales, respiratory distress, rhonchi, wheezes - Cardiovascular Cardiovascular exam: Present: RRR, +S1, +S2. Absent: diastolic murmur, gallop, rubs, systolic murmur - GI/Abdominal GI/Abdominal exam: Present: normal bowel sounds, soft, no peritoneal signs. Absent: distended, tenderness - Extremities Exam Extremities exam: Present: pedal edema, warm, radial pulses palpable and symetrical. Absent: calf tenderness, cyanotic - Expanded Lower Extremities Exam Lower Leg exam: Present: erythema (mild on left) Neuro vascular tendon exam: Present: no vascular compromise - Neurological Exam Neurological exam: Present: alert, CN II-XII intact, oriented X3, no focal deficits, strengths equal and symetr throughout. Absent: pronater drift, facial droop, speech deficit - Skin Skin exam: Present: dry, intact, normal color, warm Internal Medicine: Result - Labs CBC & Chem 7: 07/27/16 05:26 07/27/16 05:26 - VTE Documentation of Mechanical Device: Venous foot pump, device Consult Discharge Plan - Plan Referrals: Lucy Murphy MD [Primary Care Provider] -
[2016-07-29] MEDS: *HR* Enoxaparin 40 MG/0.4 ML SYRINGE SQ SCH (06:18)
[2016-07-29] MEDS: Lisinopril 20 MG TABLET PO SCH (09:36)
[2016-07-29] MEDS: Venlafaxine XR (24 HR) 37.5 MG CAP.ER.24H PO SCH (09:37)
[2016-07-29 11:46] VITALS: BP 144/59
[2016-07-29] MEDS: traMADol 50 MG TABLET PO PRN (13:52)
--- NOTE | 2016-07-29 14:56 | Discharge Summary ---
Date of Encounter: 07/29/16 Time of Encounter: 13:00 - Discharge Diagnosis (1) Weakness Priority: Primary Status: Acute Comments: sending to signatures for inpatient rehab (2) Physical deconditioning Priority: Primary Status: Acute (3) Noncompliance of patient with dietary regimen Priority: Secondary Status: Chronic Comments: Nutrition services brought on board while admitted and high-protein ensure added 3 times a day as it is lactose-free. Of note, patient is status post Damon -en-Y gastric bypass in 2003. She states she gives herself monthly B12 injections. She also states that she is on iron supplements but states she has diarrhea with iron supplementation. Iron stores are low, B12 and folate are normal. TSH elevated and is being addressed, her Synthroid dosage will be increased upon discharge. (4) Hypokalemia Priority: Primary Status: Resolved (5) Hypothyroidism Priority: Secondary Status: Chronic Comments: TSH was elevated to 12.069. Free and total T3 both low; Free T4 normal. She was started on IV Levothyroxine in the ED- will transition to PO upon discharge. Home dosing of 125 mcg per day will be increased upon discharge. She is endorsing compliance with her medication. Qualifiers: Hypothyroidism type: acquired Qualified Code(s): E03.9 - Hypothyroidism, unspecified (6) Bilateral lower leg cellulitis Priority: Primary Status: Acute Comments: On examination, very mild erythema noted yesterday to bilateral lower extremities, and again today only to the left with very mild warmth. Possible acute cellulitis although she has no other indications of an active infection. Will continue by mouth antibiotics to complete the course. No antibiotic allergies listed. (7) Type 2 diabetes mellitus Priority: Primary Status: Inactive Comments: It does not appear as if this patient has diabetes. She is on no diabetes medications at home and her A1c is 5.0%. No indication to initiate medications. Follow up outpatient. Qualifiers: Diabetes mellitus complication status: without complication Diabetes mellitus manager terminal insulin use: without fci use Qualified Code(s): E11.9 - Type 2 diabetes mellitus without complications (8) Essential hypertension Priority: Secondary Status: Chronic Comments: Controlled. Continue home medications and follow up outpatient (9) DVT prophylaxis Priority: Primary Status: Acute Comments: Initially treated with foot pumps while admitted however patient began to endorse foot pain so pharmacologic prophylaxis was initiated; subcutaneous Lovenox while admitted (10) Morbid obesity with BMI of 50.0-59.9, adult Priority: Secondary Status: Chronic (11) History of Damon-en-Y gastric bypass Priority: Secondary Status: Chronic - Discharge Medications Prescriptions: Cephalexin [Keflex] 500 mg PO BID #14 capsule Levothyroxine [Synthroid] 150 mcg PO DAILY #30 tablet Potassium Chloride 20 meq PO BID #60 tab.er.prt Tramadol HCl [Ultram] 100 mg PO BID PRN #28 tab PRN Reason: Pain Home Medications: Albuterol Sulfate [Albuterol Inhaler] 2 puff IH Q4HR PRN 10/12/15 [History] Cyanocobalamin (B-12) [Vitamin B12] 1,000 mcg PO QMONTH 10/12/15 [History] Dronedarone [Multaq] 400 mg PO BIDWM 10/12/15 [History] Ferrous Sulfate 325 mg PO DAILY 10/12/15 [History] Lisinopril [Zestril] 40 mg PO DAILY 10/12/15 [History] Montelukast [Singulair] 10 mg PO DAILY 10/12/15 [History] Multivitamin [Multi-Day Vitamins] 1 each PO DAILY 10/12/15 [History] Naproxen Sodium [Aleve] 220 mg PO Q12H 10/12/15 [History] Torsemide [Demadex] 20 mg PO PRN PRN 10/12/15 [History] Venlafaxine HCl [Venlafaxine HCl ER] 37.5 mg PO DAILY 10/12/15 [History] traMADol [Ultram] 50 - 100 mg PO DAILY PRN 10/12/15 [History] Calcium Carbonate [Tums] 500 mg PO DAILY PRN 07/25/16 [History] Dicyclomine [Bentyl] 20 mg PO QID 07/25/16 [History] Lactase [Dairy Relief] 3,000 unit PO PRN PRN 07/25/16 [History] Omeprazole [PriLOSEC] 20 mg PO DAILY 07/25/16 [History] Acetaminophen [Tylenol] 500 mg PO Q6HR 07/26/16 [History] Gabapentin [Neurontin] 100 mg PO BID 07/26/16 [History] hydroCHLOROthiazide [Hydrochlorothiazide] 25 mg PO DAILY 07/26/16 [History] Cephalexin [Keflex] 500 mg PO BID #14 capsule 07/29/16 [Rx] Levothyroxine [Synthroid] 150 mcg PO DAILY #30 tablet 07/29/16 [Rx] Potassium Chloride 20 meq PO BID #60 tab.er.prt 07/29/16 [Rx] Tramadol HCl [Ultram] 100 mg PO BID PRN #28 tab 07/29/16 [Rx] Allergies/Adverse Reactions: Allergies celecoxib [From Celebrex] Allergy (Verified 07/26/16 08:58) Itching aspirin Adverse Reaction (Verified 07/26/16 08:58) "passed out" meloxicam [From Mobic] Adverse Reaction (Verified 07/26/16 08:58) high blood pressure pregabalin [From Lyrica] Adverse Reaction (Verified 07/26/16 08:58) suicidal rofecoxib [From Vioxx] Adverse Reaction (Verified 07/26/16 08:58) high blood pressure valdecoxib [From Bextra] Adverse Reaction (Verified 07/26/16 08:58) high blood pressure Procedures/tests Complete & Pending: Procedures Performed prior 72 hours Category Date Time Status EV echocardiogram Routine Y 07/28/16 13:37 Completed Date of admission: 07/26/16 15:35 Primary care physician: Lucy Murphy, Consults: 07/27/16 16:42 Consult to Nutrition [CONS] Routine Comment: s/p damon en y in 2003. noncompliant Consulting Provider: NUTRITION Reason for Dietary Consult: PO Supplementation Discharging clinician: Katherine Onofre Anticipated date of discharge: 07/29/16 (sending to signatures) - Patient Status Disposition: Transfer Inpatient Rehab Fac Condition: Fair Functional capacity at discharge: uses cane/walker Overall status at discharge: patient is progressing back to baseline - Discharge Instructions Follow Up With: Lucy Murphy MD [Primary Care Provider] - Additional Instructions: Follow-up with primary care provider within one to 2 weeks - Diet and Activity Activity: as per physical therapy, increase activity as tolerated Diet: low fat, low cholesterol, low salt diet Hospital course: Ms. Granado is a 66 year old female with past medical of atrial fibrillation, fibromyalgia, GERD, hypertension, morbid obesity, hypothyroidism, Damon-en-Y surgery in 2003. Of note, patient was listed as being a diabetic, she is not a diabetic-she is not on diabetes medications and her A1c is 5.0%. Patient presented to the emergency department chief complaint of generalized weakness for the last 2 weeks. She states on the 2 days prior to presentation, she is not able to ambulate even with her walker at home which is what she typically uses for ambulation. Patient denied any increased of her chronic pain. She denied fever, chills, cough, nausea vomiting or diarrhea. Workup in the emergency department notable for elevated TSH. Chest x-ray negative. Patient was admitted to the hospitalist service for further evaluation and management. She was seen and evaluated by occupational and physical therapy both of whom recommended inpatient rehabilitation. Urinalysis was negative. Blood cultures were negative. She had mild cellulitis to her lower extremities and was treated with vancomycin and then transitioned to Keflex. No leukocytosis or sepsis. Given the edema in her legs and her dyspnea on exertion, an echocardiogram was obtained which was unremarkable with an ejection fraction of 60%. She was given IV levothyroxine while admitted in her levothyroxine dosage was increased upon discharge. She had hypokalemia that resolved, and her home dosing of potassium was increased. Patient was noted to be noncompliant with dietary regimen. Nutrition was brought on board and high-protein Ensure was added to her regimen. Her iron stores are low and her iron supplementation was continued. B12 and folate levels were normal. She was discharged to signature is in stable condition with close outpatient follow-up recommended. ITS Impressions Chest X-Ray 07/24/16 21:33 IMPRESSION: No acute process. Mild cardiomegaly. D/ / Kesha James MD / Kesha James MD Interpreting Provider: Kesha James MD Echocardiogram impressions: Normal LV systolic function, LVEF 60%. Normal right ventricular size and function. Severely dilated left atrium. Mild aortic stenosis. Mild aortic regurgitation. Unable to estimate RVSP due to lack of TR jet. - Time Spent with Patient Total time spent providing and/or coordinating discharge services: - Constitutional Vitals: Temp Pulse Resp BP Pulse Ox 98.1 F 70 18 144/59 94 07/29/16 11:45 07/29/16 11:45 07/29/16 11:45 07/29/16 11:45 07/29/16 11:45 General appearance: Present: cooperative, A&O X 3, morbidly obese, pleasant, no acute distress, answers questions appropriately - Head Head exam: Present: atraumatic, normocephalic - Eye Eye exam: Present: PERRL, conjuntiva pink, sclera anicteric Pupils: Present: PERRL - Neck Neck exam general surgery: Present: supple, trachea midline. Absent: lymphadenopathy - Respiratory Respiratory exam: Present: decreased breath sounds (2/2body habitus- no increased WOB). Absent: accessory muscle use, rales, respiratory distress, rhonchi, wheezes - Cardiovascular Cardiovascular exam: Present: RRR, +S1, +S2. Absent: diastolic murmur, gallop, rubs, systolic murmur - GI/Abdominal GI/Abdominal exam: Present: normal bowel sounds, soft, no peritoneal signs. Absent: distended, tenderness - Extremities Exam Extremities exam: Present: pedal edema, warm, radial pulses palpable and symetrical. Absent: calf tenderness, cyanotic - Expanded Lower Extremities Exam Lower Leg exam: Present: erythema (mild on left) Neuro vascular tendon exam: Present: no vascular compromise - Neurological Exam Neurological exam: Present: alert, CN II-XII intact, oriented X3, no focal deficits, strengths equal and symetr throughout. Absent: pronater drift, facial droop, speech deficit - Skin Skin exam: Present: dry, intact, normal color, warm - VTE Documentation of Mechanical Device: Venous foot pump, device
--- NOTE | 2016-07-29 15:14 | Physician Discharge Referral ---
ExtendedCare Referral Info Transfer To: [facility] [place] [facility] [place] Provider in Charge: Regino Onofre CNP Provider in Charge after Transfer: PCP Institutional Level of Care: Skilled - Diagnosis (1) Weakness Priority: Primary Status: Acute (2) Physical deconditioning Priority: Primary Status: Acute (3) Noncompliance of patient with dietary regimen Priority: Secondary Status: Chronic (4) Hypokalemia Priority: Primary Status: Resolved (5) Hypothyroidism Priority: Secondary Status: Chronic (6) Bilateral lower leg cellulitis Priority: Primary Status: Acute (7) Type 2 diabetes mellitus Priority: Secondary Status: Inactive (8) Essential hypertension Priority: Secondary Status: Chronic (9) DVT prophylaxis Priority: Primary Status: Acute (10) Morbid obesity with BMI of 50.0-59.9, adult Priority: Secondary Status: Chronic (11) History of Damon-en-Y gastric bypass Priority: Secondary Status: Chronic Prognosis: Fair Aware of Diagnosis: Patient Aware of Prognosis: Patient - Transfer Medications Prescriptions: Cephalexin [Keflex] 500 mg PO BID #14 capsule Levothyroxine [Synthroid] 150 mcg PO DAILY #30 tablet Potassium Chloride 20 meq PO BID #60 tab.er.prt Tramadol HCl [Ultram] 100 mg PO BID PRN #28 tab PRN Reason: Pain Home Medications: Albuterol Sulfate [Albuterol Inhaler] 2 puff IH Q4HR PRN 10/12/15 [History] Cyanocobalamin (B-12) [Vitamin B12] 1,000 mcg PO QMONTH 10/12/15 [History] Dronedarone [Multaq] 400 mg PO BIDWM 10/12/15 [History] Ferrous Sulfate 325 mg PO DAILY 10/12/15 [History] Lisinopril [Zestril] 40 mg PO DAILY 10/12/15 [History] Montelukast [Singulair] 10 mg PO DAILY 10/12/15 [History] Multivitamin [Multi-Day Vitamins] 1 each PO DAILY 10/12/15 [History] Naproxen Sodium [Aleve] 220 mg PO Q12H 10/12/15 [History] Torsemide [Demadex] 20 mg PO PRN PRN 10/12/15 [History] Venlafaxine HCl [Venlafaxine HCl ER] 37.5 mg PO DAILY 10/12/15 [History] traMADol [Ultram] 50 - 100 mg PO DAILY PRN 10/12/15 [History] Calcium Carbonate [Tums] 500 mg PO DAILY PRN 07/25/16 [History] Dicyclomine [Bentyl] 20 mg PO QID 07/25/16 [History] Lactase [Dairy Relief] 3,000 unit PO PRN PRN 07/25/16 [History] Omeprazole [PriLOSEC] 20 mg PO DAILY 07/25/16 [History] Acetaminophen [Tylenol] 500 mg PO Q6HR 07/26/16 [History] Gabapentin [Neurontin] 100 mg PO BID 07/26/16 [History] hydroCHLOROthiazide [Hydrochlorothiazide] 25 mg PO DAILY 07/26/16 [History] Cephalexin [Keflex] 500 mg PO BID #14 capsule 07/29/16 [Rx] Levothyroxine [Synthroid] 150 mcg PO DAILY #30 tablet 07/29/16 [Rx] Potassium Chloride 20 meq PO BID #60 tab.er.prt 07/29/16 [Rx] Tramadol HCl [Ultram] 100 mg PO BID PRN #28 tab 07/29/16 [Rx] Allergies/Adverse Reactions: Allergies celecoxib [From Celebrex] Allergy (Verified 07/26/16 08:58) Itching aspirin Adverse Reaction (Verified 07/26/16 08:58) "passed out" meloxicam [From Mobic] Adverse Reaction (Verified 07/26/16 08:58) high blood pressure pregabalin [From Lyrica] Adverse Reaction (Verified 07/26/16 08:58) suicidal rofecoxib [From Vioxx] Adverse Reaction (Verified 07/26/16 08:58) high blood pressure valdecoxib [From Bextra] Adverse Reaction (Verified 07/26/16 08:58) high blood pressure - Respiratory Orders Smoking Cessation: Smoking cessation has been advised. For more information, call the [place] Tobacco Quit Line at 4-226-OGKL-NOW. - Ancillary Orders May use pressure relief devices daily prn, May go on MINA w/family/respon alliance party w /meds at nurse discretion PRN, May have alcoholic beverages, May consult with Dentist, Sound Ranging Crewmember, Operations And Maintenance Specialist PRN - Advance Directives Living Will: No Power of Hand Sign Writer: No Code Status: Full Code - Mobility Orders Ambulate (per PT) - Rehabiliation Orders Rehab Potential: Fair Rehab Orders: ROM Exercises, Evaluation for Physical Therapy, Evaluation for Occupational Therapy - Treatments Skin tear care topically daily PRN per policy, May check for fecal impaction rectally daily PRN, Fleet enema rectally every other day PRN cleansing purposes CERTIFICATION: I certify that the transfer of the above named patient to an Extended Care Facility is necessary for the continuing treatment of the diagnosis listed. The above information is true and accurate reflection of patient's current condition. Confidential - Redisclosure prohibited without a patient's written consent.
[2016-07-30 10:37] LABS: Vitamin D 1,25 Dihydroxy 41.5 pg/mL (19.9-79.3)
== END 2016-07-29 16:16 | DRG 603 ==
LOC: 3BNU 21:13 → EMEROO 21:13 → SUATTDRO 07-25 00:40 → 3BNU 07-25 01:53
PROVIDERS: ADMIT Internal Medicine Sleep Medicine; ATTEND Nurse Practitioner Family